=== PATIENT | male | born 1945 | race Caucasian/White ===

== ENCOUNTER 2016-09-03 11:27 | Observation (INO) | payer MEDICARE, MEDICAID ==
[~2016-09-03] VITALS: Ht 170.2 cm; Wt 72.6 kg
[~2016-09-03 11:27] MED LIST: CLON0.1T PO; FERR-63 PO; LISI-604 PO; PRAV40TA58 PO
[2016-09-03 12:28] LABS: INR 1.1
[2016-09-03 12:29] LABS: BASOPHILS % 0.9 % (0.0-2.0); EOSINOPHILS % 5.4 % (0.0-5.0); HEMATOCRIT. 33.6 % (42.0-52.0); HEMOGLOBIN. 11.1 g/dL (14.0-18.0); LYMPHOCYTES % 14.6 % (20.0-50.0); MEAN CORPUSCULAR HEMOGLOBIN 31.2 pg (28.0-32.0); MEAN CORPUSCULAR HGB CONC 33.1 g/dL (31.0-37.0); MEAN CORPUSCULAR VOLUME 94.2 fL (80.0-94.0); MEAN PLATELET VOLUME 8.6 fl (7.4-10.4); MONOCYTES % 8.6 % (2.0-8.0); NEUTROPHILS % 70.5 % (40.0-76.0); PLATELET 143 x1000/uL (130-400); RED BLOOD CELL COUNT 3.57 mill/uL (4.7-6.1); RED CELL DISTRIBUTION WIDTH 15.5 % (11.6-14.6); WHITE BLOOD COUNT 6.6 x1000/uL (4.5-11.0)
[2016-09-03 12:35] LABS: ALANINE AMINOTRANSFERASE 17 IU/L (13-61); ALBUMIN 3.3 g/dL (3.4-5.0); ANION GAP 11; CALCIUM 7.8 mg/dL (8.5-10.1); CARBON DIOXIDE 31 mEq/L (21-32); CHLORIDE 101 mEq/L (98-107); INDEX HEMOLYSI 1 (1-3); INDEX ICTERIC 1 (1-4); INDEX LIPEMIC 1 (1-3); UREA NITROGEN BLOOD 52 mg/dL (7-21); eGFR 8 mL/min (>60)
[2016-09-03] MEDS ORDERED: LOSARTAN POTASSIUM 100 MG TABLET PO SCH (16:45)
[2016-09-03 16:58] VITALS: BP 160/97
[2016-09-03] MEDS ORDERED: VALS320T9 PO (17:46)
[2016-09-03] MEDS ORDERED: SEVE800T8 PO (17:46)
[2016-09-03] MEDS ORDERED: DOCU-138 PO (17:46)
[2016-09-03] MEDS ORDERED: ATOR80TA76 PO (17:46)
[2016-09-03] MEDS ORDERED: CALCIUM ACETATE PO (17:46)
[2016-09-03] MEDS ORDERED: ASPI-1035 PO (17:46)
[2016-09-03] MEDS ORDERED: CALC0.253 PO (17:46)
[2016-09-03] MEDS ORDERED: AMLO10TA80 PO (17:46)
[2016-09-03 20:00] VITALS: BP 143/88
[2016-09-03] MEDS ORDERED: ATORVASTATIN CALCIUM 10MG TABLET PO SCH (21:00)
[2016-09-04] VITALS: BP 133/92
[2016-09-04 04:00] VITALS: BP 119/89
[2016-09-04 06:02] LABS: BASOPHILS % 1.1 % (0.0-2.0); EOSINOPHILS % 6.1 % (0.0-5.0); HEMOGLOBIN. 11.8 g/dL (14.0-18.0); LYMPHOCYTES % 17.9 % (20.0-50.0); MEAN CORPUSCULAR HGB CONC 32.7 g/dL (31.0-37.0); MEAN CORPUSCULAR VOLUME 94.7 fL (80.0-94.0); MEAN PLATELET VOLUME 9.3 fl (7.4-10.4); MONOCYTES % 9.3 % (2.0-8.0); NEUTROPHILS % 65.6 % (40.0-76.0); PLATELET 131 x1000/uL (130-400); RED CELL DISTRIBUTION WIDTH 15.8 % (11.6-14.6)
[2016-09-04 06:25] LABS: CALCIUM 7.6 mg/dL (8.5-10.1); PHOSPHORUS 3.3 mg/dL (2.5-4.9)
[2016-09-04 08:00] VITALS: BP 127/92
[2016-09-04 08:36] VITALS: BP 119/89
[2016-09-04] MEDS ORDERED: FOLIC ACID/VITAMIN B COMP W-C TABLET PO SCH (09:00)
[2016-09-04] MEDS ORDERED: AMLODIPINE 2.5MG TABLET PO SCH (09:00)
[2016-09-04] MEDS ORDERED: LOSARTAN POTASSIUM 100 MG TABLET PO SCH ×2 (09:00)
== END 2016-09-04 09:00 | disposition home or self-care (01) ==
LOC: ER 12:42 → 7WST 13:38 → INTOOBSV 13:38
PROVIDERS: ADMIT Internal Medicine; ATTEND Internal Medicine
DX: T82.49XA Other complication of vascular dialysis catheter, initial encounter (principal); E11.22 Type 2 diabetes mellitus with diabetic chronic kidney disease; I12.0 Hypertensive chronic kidney disease with stage 5 chronic kidney disease or end stage renal disease; N18.6 End stage renal disease; Z99.2 Dependence on renal dialysis; D64.9 Anemia, unspecified; E78.5 Hyperlipidemia, unspecified; E83.51 Hypocalcemia; E87.3 Alkalosis; I25.10 Atherosclerotic heart disease of native coronary artery without angina pectoris; N25.81 Secondary hyperparathyroidism of renal origin; E83.39 Other disorders of phosphorus metabolism; Z82.49 Family history of ischemic heart disease and other diseases of the circulatory system; Y71.2 Prosthetic and other implants, materials and accessory cardiovascular devices associated with adverse incidents
CPT/HCPCS: 36415; 36581; 71010; 77001; 80048; 80053; 84100; 85025; 85610; 93005; 99285; C1750; C1769; G0378; J7030

== ENCOUNTER 2017-01-13 11:04 | Emergency (ER) | payer MEDICARE, MEDICAID ==
[~2017-01-13] VITALS: Ht 170.2 cm; Wt 82.0 kg
[~2017-01-13 11:04] MED LIST changes: +ASPI-1159 PO; +ATOR-2 PO; +CALCIUM ACETATE PO; -CLON0.1T PO; +DOCU-138 PO; -FERR-63 PO; -LISI-604 PO; -PRAV40TA58 PO; +VALS320T2 PO
[2017-01-13] MEDS ORDERED: MORPHINE SULFATE 2 MG/ML CPJ (NOT FOR IM USE) IV ONE (12:00)
[2017-01-13] MEDS ORDERED: ONDANSETRON HCL 4MG/2ML VIAL IV ONE ×2 (12:00→15:45)
[2017-01-13 12:19] LABS: BASOPHILS % 1.1 % (0.0-2.0); EOSINOPHILS % 2.4 % (0.0-5.0); HEMATOCRIT. 36.7 % (42.0-52.0); HEMOGLOBIN. 11.9 g/dL (14.0-18.0); LYMPHOCYTES % 10.3 % (20.0-50.0); MEAN CORPUSCULAR HEMOGLOBIN 30.6 pg (28.0-32.0); MEAN CORPUSCULAR VOLUME 94.7 fL (80.0-94.0); MEAN PLATELET VOLUME 8.5 fl (7.4-10.4); MONOCYTES % 8.2 % (2.0-8.0); PLATELET 95 x1000/uL (130-400); RED BLOOD CELL COUNT 3.88 mill/uL (4.7-6.1); RED CELL DISTRIBUTION WIDTH 17.5 % (11.6-14.6)
[2017-01-13 12:28] LABS: INR 1.1; PARTIAL THROMBOPLASTIN TIME 30.8 sec (24.0-34.0); PROTHROMBIN TIME 11.8 sec
[2017-01-13 12:36] LABS: CARBON DIOXIDE 24 mEq/L (21-32); CHLORIDE 101 mEq/L (98-107); TROPONIN I < 0.02 ng/mL (0.00-0.04)
[2017-01-13] MEDS ORDERED: HYDROMORPHONE HCL/PF 2MG/ML CPJ IV ONE (15:45)
[2017-01-13] MEDS ORDERED: MORPHINE SULFATE 4 MG/ML CPJ (NOT FOR IM USE) IV STA (19:55)
[2017-01-13] MEDS ORDERED: ONDANSETRON HCL 4MG/2ML VIAL IV STA (19:55)
[2017-01-13 20:05] VITALS: BP 121/90
== END 2017-01-13 20:10 | disposition short-term general hospital (02) ==
LOC: ER 12:05 → EDBEDREQ 14:17 → ENRESERV 15:22 → CANRESERV 15:22 → EDBEDREQ 16:37 → CANBEDREQ 17:39 → ER 20:10
DX: S72.002A Fracture of unspecified part of neck of left femur, initial encounter for closed fracture (principal); S00.91XA Abrasion of unspecified part of head, initial encounter; R55 Syncope and collapse; I12.0 Hypertensive chronic kidney disease with stage 5 chronic kidney disease or end stage renal disease; E11.22 Type 2 diabetes mellitus with diabetic chronic kidney disease; N18.6 End stage renal disease; Z99.2 Dependence on renal dialysis; Z79.82 Long term (current) use of aspirin; X58.XXXA Exposure to other specified factors, initial encounter; Y93.89 Activity, other specified; Y92.89 Other specified places as the place of occurrence of the external cause; Y99.8 Other external cause status
CPT/HCPCS: 36415; 70450; 71010; 72125; 73502; 80053; 82553; 82962; 83735; 83880; 84484; 85025; 85610; 85730; 93005; 96374; 96375; 96376; 99285; J1170; J2270; J2405

== ENCOUNTER 2017-02-13 21:21 | Observation (INO) | payer MEDICARE, MEDICAID, OTHER ==
[~2017-02-13] VITALS: Ht 170.2 cm; Wt 74.8 kg
[2017-02-13] MEDS ORDERED: LORAZEPAM 2MG/ML CPJ IV ONE (23:00)
[2017-02-13] MEDS ORDERED: LEVETIRACETAM 1,000 MG in SODIUM CHLORIDE 0.9% 100 ML IV ONE (23:00)
[2017-02-13 23:13] LABS: CHLORIDE 99 mEq/L (98-107)
[2017-02-13 23:14] LABS: BASOPHILS % 1.2 % (0.0-2.0); EOSINOPHILS % 2.4 % (0.0-5.0); HEMATOCRIT. 30.3 % (42.0-52.0); HEMOGLOBIN. 9.9 g/dL (14.0-18.0); LYMPHOCYTES % 7.2 % (20.0-50.0); MEAN CORPUSCULAR HEMOGLOBIN 30.4 pg (28.0-32.0); MEAN CORPUSCULAR VOLUME 93.2 fL (80.0-94.0); MEAN PLATELET VOLUME 7.9 fl (7.4-10.4); MONOCYTES % 11.2 % (2.0-8.0); PLATELET 166 x1000/uL (130-400); RED BLOOD CELL COUNT 3.25 mill/uL (4.7-6.1); RED CELL DISTRIBUTION WIDTH 17.8 % (11.6-14.6)
[2017-02-13 23:16] LABS: INR 1.2; PROTHROMBIN TIME 12.2 sec (9.4-11.6)
[2017-02-13 23:18] LABS: CARBON DIOXIDE 30 mEq/L (21-32)
[2017-02-14] MEDS ORDERED: ACETAMINOPHEN 325MG TABLET PO PRN
[2017-02-14] MEDS ORDERED: IBUPROFEN 600MG TABLET PO PRN
[2017-02-14] MEDS ORDERED: LORAZEPAM 2MG/ML CPJ IV PRN (01:30)
[2017-02-14] MEDS ORDERED: ENOXAPARIN 40MG/0.4ML SYR SUBCUT SCH (01:30)
[2017-02-14] MEDS ORDERED: ACETAMINOPHEN 650MG SUPP PR PRN (01:30)
[2017-02-14 02:45] VITALS: BP 110/75
[2017-02-14] MEDS ORDERED: DEXT 5%/0.45% NACL 1000ML 1,000 ML IV ONE (04:00)
[2017-02-14 05:33] LABS: TROPONIN I 0.03 ng/mL (0.00-0.04)
[2017-02-14 06:10] LABS: BASOPHILS % 1.2 % (0.0-2.0); EOSINOPHILS % 1.1 % (0.0-5.0); HEMATOCRIT. 27.4 % (42.0-52.0); HEMOGLOBIN. 8.9 g/dL (14.0-18.0); LYMPHOCYTES % 15.6 % (20.0-50.0); MEAN CORPUSCULAR HEMOGLOBIN 30.4 pg (28.0-32.0); MEAN PLATELET VOLUME 8.2 fl (7.4-10.4); MONOCYTES % 10.6 % (2.0-8.0); NEUTROPHILS % 71.5 % (40.0-76.0); PLATELET 174 x1000/uL (130-400); RED BLOOD CELL COUNT 2.94 mill/uL (4.7-6.1); RED CELL DISTRIBUTION WIDTH 17.6 % (11.6-14.6)
[2017-02-14] MEDS: SODIUM CHLORIDE 0.9% INJ 3ML FLUSH IVF SCH ×2 (06:15→13:09)
[2017-02-14 08:00] VITALS: BP 98/57
[2017-02-14] MEDS ORDERED: ATEN-42 PO (08:13)
[2017-02-14] MEDS: DOCUSATE SODIUM 100MG CAPSULE PO SCH ×2 (08:25→17:00)
[2017-02-14] MEDS ORDERED: ASPIRIN 81MG EC TABLET PO SCH (09:00)
[2017-02-14] MEDS ORDERED: ENOXAPARIN 30MG/0.3ML SYR SUBCUT SCH (09:00)
[2017-02-14] MEDS ORDERED: LOSARTAN POTASSIUM 100 MG TABLET PO SCH (09:00)
[2017-02-14] MEDS ORDERED: FAMOTIDINE 20MG/2ML VIAL IV SCH (09:00)
[2017-02-14 12:00] VITALS: BP 116/62
[2017-02-14] MEDS ORDERED: LEVETIRACETAM 500 MG in SODIUM CHLORIDE 0.9% 100 ML IV SCH (12:00)
[2017-02-14] MEDS ORDERED: LEVETIRACETAM 500MG PREMIX 100 ML IV SCH (12:00)
[2017-02-14 16:00] VITALS: BP 98/52
[2017-02-14 20:00] VITALS: BP 115/62
[2017-02-14] MEDS ORDERED: LEVETIRACETAM 500MG TABLET PO NR (20:39)
[2017-02-14] MEDS ORDERED: ATORVASTATIN CALCIUM 40MG TABLET PO SCH (21:00)
[2017-02-14] MEDS ORDERED: KEPP500 PO (21:07)
[2017-02-14 21:08] VITALS: BP 115/62
== END 2017-02-14 21:30 | disposition home or self-care (01) ==
LOC: ER 21:26 → 7WST 23:51 → INTOOBSV 23:51 → EDBEDREQ 02-14 00:02 → ENRESERV 02-14 00:41
PROVIDERS: ADMIT Internal Medicine; ATTEND Internal Medicine
DX: G40.909 Epilepsy, unspecified, not intractable, without status epilepticus (principal); I12.0 Hypertensive chronic kidney disease with stage 5 chronic kidney disease or end stage renal disease; E11.22 Type 2 diabetes mellitus with diabetic chronic kidney disease; N18.6 End stage renal disease; Z99.2 Dependence on renal dialysis; E43 Unspecified severe protein-calorie malnutrition; D64.9 Anemia, unspecified
CPT/HCPCS: 36415; 70450; 71010; 80048; 80053; 83690; 84484; 85025; 85610; 87040; 93005; 96361; 96365; 96372; 96375; 99291; G0378; J1650; J1953; J2060; J3490; 96374; J7050

== ENCOUNTER 2018-02-12 19:19 | Emergency (ER) | payer MEDICARE, MEDICAID ==
[~2018-02-12] VITALS: Ht 170.2 cm; Wt 82.0 kg
[~2018-02-12 19:19] MED LIST changes: +ATEN-42 PO; +KEPP500 PO
[2018-02-12] MEDS ORDERED: HYDROCODONE/ACETAMINOPHEN 5/325MG TABLET PO PRN (21:30)
[2018-02-12] MEDS ORDERED: HYDROCODONE/ACETAMINOPHEN 5/325MG TABLET PO ONE (22:30)
[2018-02-12] MEDS ORDERED: TRAMADOL 50MG TABLET PO ONE (22:30)
[2018-02-12 22:36] VITALS: BP 107/54
[2018-02-18] MEDS ORDERED: MIDO10TA MT (11:36)
[2018-02-18] MEDS ORDERED: LEVO250T2 MT (11:40)
== END 2018-02-12 23:19 | disposition home or self-care (01) ==
LOC: ER 19:19
DX: S52.502G Unspecified fracture of the lower end of left radius, subsequent encounter for closed fracture with delayed healing (principal); S52.615A Nondisplaced fracture of left ulna styloid process, initial encounter for closed fracture; I12.0 Hypertensive chronic kidney disease with stage 5 chronic kidney disease or end stage renal disease; N18.6 End stage renal disease; Z99.2 Dependence on renal dialysis; W01.0XXA Fall on same level from slipping, tripping and stumbling without subsequent striking against object, initial encounter; Z79.82 Long term (current) use of aspirin; Y93.89 Activity, other specified; Y92.89 Other specified places as the place of occurrence of the external cause
CPT/HCPCS: 29105; 73110; 99284; A4565

== ENCOUNTER 2018-04-18 08:18 | Inpatient (IN) | payer MEDICARE, MEDICAID ==
[2018-04-18] VITALS (41 sets, daily range): BP systolic 65–150; BP diastolic 30–110
[~2018-04-18] VITALS: Ht 170.2 cm; Wt 69.9 kg
[~2018-04-18 08:18] MED LIST changes: -ATEN-42 PO; -ATOR-2 PO; -CALCIUM ACETATE PO; +LEVO250T2 MT; +MIDO10TA MT; -VALS320T2 PO
[2018-04-18] MEDS ORDERED: SODIUM CHLORIDE 0.9% 500 ML IV ONE (08:41)
[2018-04-18 09:02] LABS: BASOPHILS % 1.4 % (0.0-2.0); EOSINOPHILS % 0.4 % (0.0-5.0); LYMPHOCYTES % 14.8 % (20.0-50.0); MEAN CORPUSCULAR HEMOGLOBIN 36.2 pg (28.0-32.0); MEAN CORPUSCULAR VOLUME 107.7 fL (80.0-94.0); MEAN PLATELET VOLUME 8.3 fl (7.4-10.4); MONOCYTES % 13.7 % (2.0-8.0); NEUTROPHILS % 69.7 % (40.0-76.0); PLATELET 154 x1000/uL (130-400); RED BLOOD CELL COUNT 1.37 mill/uL (4.7-6.1)
[2018-04-18 09:06] LABS: HEMATOCRIT. 14.7 % (42.0-52.0)
[2018-04-18 09:17] LABS: INR 1.5; PROTHROMBIN TIME 14.7 sec (9.1-11.1)
[2018-04-18 09:29] LABS: CHLORIDE 101 mEq/L (98-107)
[2018-04-18] MEDS ORDERED: PHENYLEPHRINE 10 MG in DEXT 5% WATER 249 ML IV PRN ×2 (12:30→13:18)
[2018-04-18] MEDS ORDERED: NOREPINEPHRINE 4MG/250ML PMX 250 ML IV ONE (13:30)
[2018-04-18] MEDS ORDERED: SIMETHICONE 40 MG/0.6 ML 30ML ONE (14:54)
[2018-04-18] MEDS ORDERED: SODIUM CHLORIDE 0.9% 10ML VIAL ONE (14:54)
[2018-04-18] MEDS ORDERED: EPINEPHRINE 0.1MG/ML (1:10,000) 10ML SYR ONE (15:37)
[2018-04-18] MEDS ORDERED: ACETAMINOPHEN 325MG TABLET PO PRN (16:15)
[2018-04-18] MEDS ORDERED: MORPHINE SULFATE 4 MG/ML CPJ (NOT FOR IM USE) IV PRN (16:15)
[2018-04-18] MEDS ORDERED: DIPHENHYDRAMINE 25MG CAPSULE PO PRN (16:15)
[2018-04-18] MEDS ORDERED: PANTOPRAZOLE SODIUM 40 MG/VIAL IV SCH (16:15)
[2018-04-18] MEDS ORDERED: ONDANSETRON HCL 4MG/2ML INJ IV PRN (16:15)
[2018-04-18] MEDS: MIDODRINE HCL 5MG TABLET PO SCH (16:48)
[2018-04-18] MEDS: PHENYLEPHRINE 80 MG in DEXT 5% WATER 492 ML IV PRN (17:32)
[2018-04-18] MEDS: PANTOPRAZOLE SODIUM 40 MG/VIAL IV SCH (17:33)
[2018-04-18 17:59] LABS: HEMATOCRIT 23.5 % (42.0-52.0); HEMOGLOBIN 8.3 g/dL (14.0-18.0)
[2018-04-18] MEDS ORDERED: MIDAZOLAM HCL 5 MG/5 ML VIAL ONE (18:09)
[2018-04-18] MEDS ORDERED: FENTANYL CITRATE/PF 50MCG/ML 2ML VIAL ONE (18:09)
[2018-04-18 18:19] LABS: INR 1.4; PARTIAL THROMBOPLASTIN TIME 31.4 sec (23.4-31.0); PROTHROMBIN TIME 14.2 sec (9.1-11.1)
[2018-04-18] MEDS ORDERED: MIDAZOLAM HCL 2 MG/2 ML VIAL IV PRN (18:32)
[2018-04-18] MEDS: SUCRALFATE 1 G/10 ML UDC PO SCH (21:00)
[2018-04-19] VITALS (121 sets, daily range): BP systolic 81–118; BP diastolic 30–63
[2018-04-19 00:36] LABS: HEMATOCRIT 31.3 % (42.0-52.0); HEMOGLOBIN 10.9 g/dL (14.0-18.0)
[2018-04-19] MEDS: PHENYLEPHRINE 80 MG in DEXT 5% WATER 492 ML IV PRN ×2 (02:06→10:23)
[2018-04-19 07:20] LABS: BASOPHILS % 0.7 % (0.0-2.0); EOSINOPHILS % 0.6 % (0.0-5.0); HEMATOCRIT. 25.1 % (42.0-52.0); HEMOGLOBIN. 9.1 g/dL (14.0-18.0); LYMPHOCYTES % 9.7 % (20.0-50.0); MEAN CORPUSCULAR HEMOGLOBIN 32.5 pg (28.0-32.0); MEAN CORPUSCULAR VOLUME 90.2 fL (80.0-94.0); MEAN PLATELET VOLUME 8.6 fl (7.4-10.4); MONOCYTES % 11.5 % (2.0-8.0); NEUTROPHILS % 77.5 % (40.0-76.0); PLATELET 75 x1000/uL (130-400); RED BLOOD CELL COUNT 2.79 mill/uL (4.7-6.1)
[2018-04-19 08:00] LABS: CHLORIDE 106 mEq/L (98-107)
[2018-04-19] MEDS: SUCRALFATE 1 G/10 ML UDC PO SCH ×4 (08:37→21:12)
[2018-04-19] MEDS: PANTOPRAZOLE SODIUM 40 MG/VIAL IV SCH ×2 (08:37→18:28)
[2018-04-19] MEDS: MIDODRINE HCL 5MG TABLET PO SCH ×3 (08:37→18:28)
[2018-04-19 08:40] LABS: PHOSPHORUS 3.5 mg/dL (2.5-4.9)
[2018-04-19] MEDS ORDERED: LORAZEPAM 2MG/ML CPJ IV PRN (12:00)
[2018-04-19 13:12] LABS: HEPATITIS B SURFACE ANTIGEN NEGATIVE
[2018-04-19 13:39] LABS: HEMATOCRIT 28.3 % (42.0-52.0)
[2018-04-19 13:41] LABS: HEPATITIS A AB IGM NEGATIVE (NEGATIVE)
[2018-04-19 14:05] LABS: INR 1.3; PARTIAL THROMBOPLASTIN TIME 29.2 sec (23.4-31.0); PROTHROMBIN TIME 12.8 sec (9.1-11.1)
[2018-04-19] MEDS ORDERED: IPRATROPIUM/ALBUTEROL 0.5-3(2.5)MG/3ML NEB HHN PRN (19:15)
[2018-04-19 20:59] LABS: HEMATOCRIT 29.2 % (42.0-52.0); HEMOGLOBIN 10.3 g/dL (14.0-18.0)
[2018-04-19] MEDS: LEVETIRACETAM 500MG TABLET PO SCH (21:12)
[2018-04-20] VITALS (93 sets, daily range): BP systolic 70–117; BP diastolic 39–84
[2018-04-20 00:33] LABS: HEMOGLOBIN 9.7 g/dL (14.0-18.0)
[2018-04-20] MEDS: PHENYLEPHRINE 80 MG in DEXT 5% WATER 492 ML IV PRN ×2 (01:22→11:08)
[2018-04-20] MEDS: IPRATROPIUM/ALBUTEROL 0.5-3(2.5)MG/3ML NEB HHN SCH ×4 (01:54→20:27)
[2018-04-20 06:16] LABS: HEMATOCRIT. 26.6 % (42.0-52.0); HEMOGLOBIN. 9.4 g/dL (14.0-18.0); PLATELET 68 x1000/uL (130-400); RED BLOOD CELL COUNT 2.93 mill/uL (4.7-6.1); RED CELL DISTRIBUTION WIDTH 16.9 % (11.6-14.6)
[2018-04-20 06:27] LABS: PHOSPHORUS 3.3 mg/dL (2.5-4.9)
[2018-04-20 06:43] LABS: INR 1.3
[2018-04-20] MEDS: MIDODRINE HCL 5MG TABLET PO SCH ×3 (08:27→16:57)
[2018-04-20] MEDS: SUCRALFATE 1 G/10 ML UDC PO SCH ×4 (08:27→21:10)
[2018-04-20] MEDS: LEVETIRACETAM 500MG TABLET PO SCH ×2 (08:27→21:10)
[2018-04-20] MEDS: PANTOPRAZOLE SODIUM 40 MG/VIAL IV SCH ×2 (08:27→16:57)
[2018-04-20 08:50] LABS: PLATELET ESTIMATE DECREASED
[2018-04-20] MEDS ORDERED: LACTULOSE 20G/30ML UDC PO SCH (09:30)
[2018-04-20] MEDS ORDERED: ALBUMIN HUMAN 12.5GM/50ML (25%) IV SCH (09:50)
[2018-04-20 12:53] LABS: HEMOGLOBIN 9.3 g/dL (14.0-18.0)
[2018-04-21] VITALS (97 sets, daily range): BP systolic 73–117; BP diastolic 34–72
[2018-04-21] MEDS: IPRATROPIUM/ALBUTEROL 0.5-3(2.5)MG/3ML NEB HHN SCH ×3 (01:37→20:27)
[2018-04-21 05:58] LABS: HEMATOCRIT. 26.1 % (42.0-52.0); HEMOGLOBIN. 9.1 g/dL (14.0-18.0); MEAN CORPUSCULAR HEMOGLOBIN 32.4 pg (28.0-32.0); MEAN CORPUSCULAR VOLUME 93.1 fL (80.0-94.0); MEAN PLATELET VOLUME 9.4 fl (7.4-10.4); PLATELET 64 x1000/uL (130-400); RED BLOOD CELL COUNT 2.81 mill/uL (4.7-6.1)
[2018-04-21 06:00] LABS: INR 1.3; PROTHROMBIN TIME 13.5 sec (9.1-11.1)
[2018-04-21 06:20] LABS: PHOSPHORUS 3.2 mg/dL (2.5-4.9)
[2018-04-21] MEDS: PANTOPRAZOLE SODIUM 40 MG/VIAL IV SCH ×2 (09:11→16:59)
[2018-04-21] MEDS: SUCRALFATE 1 G/10 ML UDC PO SCH ×4 (09:11→20:27)
[2018-04-21] MEDS: LEVETIRACETAM 500MG TABLET PO SCH ×2 (09:12→20:26)
[2018-04-21] MEDS: MIDODRINE HCL 5MG TABLET PO SCH ×3 (09:12→21:03)
[2018-04-21 09:59] LABS: PLATELET ESTIMATE DECREASED
[2018-04-21] MEDS: NOREPINEPHRINE 32 MG in DEXT 5% WATER 468 ML IV PRN ×2 (10:41→14:07)
[2018-04-21] MEDS: PHENYLEPHRINE 80 MG in DEXT 5% WATER 492 ML IV PRN ×2 (13:30→19:48)
[2018-04-22] VITALS (98 sets, daily range): BP systolic 80–126; BP diastolic 33–65
[2018-04-22] MEDS: PHENYLEPHRINE 80 MG in DEXT 5% WATER 492 ML IV PRN (03:37)
[2018-04-22] MEDS: MIDODRINE HCL 5MG TABLET PO SCH ×3 (05:18→22:44)
[2018-04-22] MEDS: SUCRALFATE 1 G/10 ML UDC PO SCH ×4 (08:10→22:49)
[2018-04-22] MEDS: LEVETIRACETAM 500MG TABLET PO SCH ×2 (08:10→22:44)
[2018-04-22] MEDS: PANTOPRAZOLE SODIUM 40 MG/VIAL IV SCH ×2 (08:11→19:05)
[2018-04-22] MEDS ORDERED: LACTULOSE 20G/30ML UDC PO SCH (08:30)
[2018-04-22] MEDS: IPRATROPIUM/ALBUTEROL 0.5-3(2.5)MG/3ML NEB HHN SCH ×3 (08:52→19:58)
[2018-04-22 09:23] LABS: HEMATOCRIT. 28.4 % (42.0-52.0); HEMOGLOBIN. 9.6 g/dL (14.0-18.0); MEAN CORPUSCULAR HEMOGLOBIN 32.1 pg (28.0-32.0); MEAN CORPUSCULAR VOLUME 95.1 fL (80.0-94.0); MEAN PLATELET VOLUME 9.5 fl (7.4-10.4); PLATELET 78 x1000/uL (130-400); RED BLOOD CELL COUNT 2.98 mill/uL (4.7-6.1); RED CELL DISTRIBUTION WIDTH 17.5 % (11.6-14.6)
[2018-04-22 09:36] LABS: BG BASE EXCESS 2.1 mmol/L (-2.0-2.0); BG DEOXYHEMOGLOBIN 7.4 % (0.0-5.0); BG FRACTION INSPIRED OXYGEN 4; BG HCO3 ACT 25.3 mmol/L (22.0-26.0); BG METHEMOGLOBIN 0.3 % (0.0-1.5); BG OXYGEN SATURATION 92.5 % (92.0-98.5); BG OXYHEMOGLOBIN 91.3 % (94.0-97.0); BG PCO2 34.1 mmHg (35.0-45.0); BG PH 7.489 (7.350-7.450); BG PO2 62.3 mmHg (75.0-100.0); BG SAMPLE SITE RIGHT RADIAL; BG TOTAL HEMOGLOBIN 9.9 g/dL (12.0-18.0); BG VENT MODE NASAL CANNULA
[2018-04-22 09:37] LABS: PHOSPHORUS 3.9 mg/dL (2.5-4.9)
[2018-04-22] MEDS ORDERED: NOREPINEPHRINE 32 MG in DEXT 5% WATER 250 ML IV PRN (10:28)
[2018-04-22 10:33] LABS: PLATELET ESTIMATE DECREASED
[2018-04-22] MEDS ORDERED: NOREPINEPHRINE 32 MG in DEXT 5% WATER 218 ML IV PRN (12:00)
[2018-04-22] MEDS: PHENYLEPHRINE IV PRN (14:32)
[2018-04-22] MEDS: WATER IV PRN (14:32)
[2018-04-22] MEDS: DEXT 5% IV PRN (14:32)
[2018-04-22] MEDS ORDERED: LIDOCAINE HCL 1% 20ML VIAL (Pyxis) INJ ONE (17:09)
[2018-04-22] MEDS ORDERED: SODIUM BICARBONATE 4% (2.4MEQ) 5ML VIAL IV ONE (17:10)
[2018-04-23] VITALS (81 sets, daily range): BP systolic 82–114; BP diastolic 36–60
[2018-04-23] MEDS: IPRATROPIUM/ALBUTEROL 0.5-3(2.5)MG/3ML NEB HHN SCH ×4 (02:05→20:11)
[2018-04-23] MEDS: WATER IV PRN ×3 (04:04→19:36)
[2018-04-23] MEDS: DEXT 5% IV PRN ×3 (04:04→19:36)
[2018-04-23] MEDS: PHENYLEPHRINE IV PRN ×3 (04:04→19:36)
[2018-04-23 05:38] LABS: HEMATOCRIT. 27.4 % (42.0-52.0); HEMOGLOBIN. 9.4 g/dL (14.0-18.0); MEAN CORPUSCULAR HEMOGLOBIN 32.5 pg (28.0-32.0); MEAN CORPUSCULAR VOLUME 94.9 fL (80.0-94.0); MEAN PLATELET VOLUME 9.2 fl (7.4-10.4); PLATELET 98 x1000/uL (130-400); RED BLOOD CELL COUNT 2.89 mill/uL (4.7-6.1); RED CELL DISTRIBUTION WIDTH 17.6 % (11.6-14.6)
[2018-04-23 05:43] LABS: PHOSPHORUS 3.3 mg/dL (2.5-4.9)
[2018-04-23 07:21] LABS: BG BASE EXCESS -1.4 mmol/L (-2.0-2.0); BG CARBOXYHEMOGLOBIN 1.2 % (0.5-1.5); BG DEOXYHEMOGLOBIN 8.4 % (0.0-5.0); BG HCO3 ACT 21.6 mmol/L (22.0-26.0); BG METHEMOGLOBIN 0.3 % (0.0-1.5); BG OXYGEN SATURATION 91.5 % (92.0-98.5); BG OXYHEMOGLOBIN 90.1 % (94.0-97.0); BG PCO2 30.4 mmHg (35.0-45.0); BG PO2 60.3 mmHg (75.0-100.0); BG SAMPLE SITE RIGHT RADIAL; BG TOTAL HEMOGLOBIN 9.6 g/dL (12.0-18.0); BG VENT MODE MASK - VENTI
[2018-04-23 07:34] LABS: PLATELET ESTIMATE SLIGHTLY DECREASED
[2018-04-23] MEDS: PANTOPRAZOLE SODIUM 40 MG/VIAL IV SCH ×2 (09:05→17:02)
[2018-04-23] MEDS: SUCRALFATE 1 G/10 ML UDC PO SCH ×4 (09:05→22:34)
[2018-04-23] MEDS: LEVETIRACETAM 500MG TABLET PO SCH ×2 (09:06→22:34)
[2018-04-23] MEDS: LACTULOSE 20G/30ML UDC PO SCH (09:06)
[2018-04-23] MEDS: MIDODRINE HCL 5MG TABLET PO SCH ×3 (09:06→22:34)
[2018-04-23] MEDS ORDERED: MORPHINE SULFATE 4 MG/ML CPJ (NOT FOR IM USE) IV PRN (18:45)
[2018-04-23] MEDS ORDERED: DEXT 5% IV PRN (19:00)
[2018-04-23] MEDS ORDERED: WATER IV PRN (19:00)
[2018-04-23] MEDS ORDERED: PHENYLEPHRINE IV PRN (19:00)
[2018-04-24] VITALS (105 sets, daily range): BP systolic 74–121; BP diastolic 26–60
[2018-04-24] MEDS: WATER IV PRN ×2 (00:02→12:39)
[2018-04-24] MEDS: PHENYLEPHRINE IV PRN ×2 (00:02→12:39)
[2018-04-24] MEDS: DEXT 5% IV PRN ×2 (00:02→12:39)
[2018-04-24] MEDS: NOREPINEPHRINE 64 MG in DEXT 5% WATER 436 ML IV PRN (00:03)
[2018-04-24] MEDS: IPRATROPIUM/ALBUTEROL 0.5-3(2.5)MG/3ML NEB HHN SCH ×3 (01:42→13:58)
[2018-04-24 05:39] LABS: HEMATOCRIT. 26.4 % (42.0-52.0); HEMOGLOBIN. 9.1 g/dL (14.0-18.0); MEAN CORPUSCULAR HEMOGLOBIN 32.9 pg (28.0-32.0); MEAN CORPUSCULAR VOLUME 95.6 fL (80.0-94.0); MEAN PLATELET VOLUME 8.8 fl (7.4-10.4); PLATELET 101 x1000/uL (130-400); RED BLOOD CELL COUNT 2.76 mill/uL (4.7-6.1); RED CELL DISTRIBUTION WIDTH 18.3 % (11.6-14.6)
[2018-04-24 05:49] LABS: CHLORIDE 104 mEq/L (98-107)
[2018-04-24 06:08] LABS: PHOSPHORUS 3.1 mg/dL (2.5-4.9)
[2018-04-24] MEDS: MIDODRINE HCL 5MG TABLET PO SCH ×3 (07:26→21:00)
[2018-04-24 07:30] LABS: BG BASE EXCESS -2.7 mmol/L (-2.0-2.0); BG CARBOXYHEMOGLOBIN 0.6 % (0.5-1.5); BG DEOXYHEMOGLOBIN 1.2 % (0.0-5.0); BG HCO3 ACT 20.8 mmol/L (22.0-26.0); BG METHEMOGLOBIN 0.1 % (0.0-1.5); BG OXYGEN SATURATION 98.8 % (92.0-98.5); BG OXYHEMOGLOBIN 98.1 % (94.0-97.0); BG PCO2 31.6 mmHg (35.0-45.0); BG PH 7.437 (7.350-7.450); BG PO2 180.9 mmHg (75.0-100.0); BG SAMPLE SITE RIGHT RADIAL; BG TOTAL HEMOGLOBIN 9.8 g/dL (12.0-18.0); BG VENT MODE MASK - NRB
[2018-04-24] MEDS: SUCRALFATE 1 G/10 ML UDC PO SCH ×4 (08:09→20:57)
[2018-04-24] MEDS: LACTULOSE 20G/30ML UDC PO SCH (08:10)
[2018-04-24] MEDS: PANTOPRAZOLE SODIUM 40 MG/VIAL IV SCH ×2 (08:10→17:59)
[2018-04-24] MEDS: LEVETIRACETAM 500MG TABLET PO SCH ×2 (08:10→20:57)
[2018-04-24 09:49] LABS: NUCLEATED RED BLOOD CELLS 1 /100 WBC; PLATELET ESTIMATE DECREASED
[2018-04-25] VITALS (96 sets, daily range): BP systolic 74–112; BP diastolic 29–53
[2018-04-25] MEDS: IPRATROPIUM/ALBUTEROL 0.5-3(2.5)MG/3ML NEB HHN SCH ×4 (02:15→21:09)
[2018-04-25 05:14] LABS: HEMATOCRIT. 26.6 % (42.0-52.0); MEAN CORPUSCULAR HEMOGLOBIN 32.6 pg (28.0-32.0); MEAN CORPUSCULAR VOLUME 96.3 fL (80.0-94.0); MEAN PLATELET VOLUME 8.9 fl (7.4-10.4); PLATELET 101 x1000/uL (130-400); RED BLOOD CELL COUNT 2.76 mill/uL (4.7-6.1); RED CELL DISTRIBUTION WIDTH 18.5 % (11.6-14.6)
[2018-04-25 05:21] LABS: CHLORIDE 106 mEq/L (98-107)
[2018-04-25] MEDS: DEXT 5% IV PRN ×3 (05:25→23:26)
[2018-04-25] MEDS: WATER IV PRN ×3 (05:25→23:26)
[2018-04-25] MEDS: PHENYLEPHRINE IV PRN ×3 (05:25→23:26)
[2018-04-25 05:38] LABS: PHOSPHORUS 3.4 mg/dL (2.5-4.9)
[2018-04-25] MEDS: MIDODRINE HCL 5MG TABLET PO SCH ×3 (06:20→21:29)
[2018-04-25 06:49] LABS: NUCLEATED RED BLOOD CELLS 1 /100 WBC; PLATELET ESTIMATE SLIGHTLY DECREASED
[2018-04-25 08:13] LABS: BG BASE EXCESS -4.1 mmol/L (-2.0-2.0); BG CARBOXYHEMOGLOBIN 0.4 % (0.5-1.5); BG FRACTION INSPIRED OXYGEN 100; BG HCO3 ACT 19.8 mmol/L (22.0-26.0); BG METHEMOGLOBIN 0.3 % (0.0-1.5); BG OXYHEMOGLOBIN 98.3 % (94.0-97.0); BG PCO2 31.6 mmHg (35.0-45.0); BG PH 7.415 (7.350-7.450); BG PO2 192.4 mmHg (75.0-100.0); BG SAMPLE SITE RIGHT RADIAL; BG TOTAL HEMOGLOBIN 8.9 g/dL (12.0-18.0); BG VENT MODE MASK - NRB
[2018-04-25] MEDS: SUCRALFATE 1 G/10 ML UDC PO SCH ×4 (08:24→21:26)
[2018-04-25] MEDS: PANTOPRAZOLE SODIUM 40 MG/VIAL IV SCH ×2 (08:24→17:34)
[2018-04-25] MEDS: LACTULOSE 20G/30ML UDC PO SCH (08:24)
[2018-04-25] MEDS: LEVETIRACETAM 500MG TABLET PO SCH ×2 (08:24→21:27)
[2018-04-25] MEDS ORDERED: VASOPRESSIN 10 UNIT in SODIUM CHLORIDE 0.9% 99.5 ML IV PRN (10:15)
[2018-04-26] VITALS (72 sets, daily range): BP systolic 57–101; BP diastolic 35–58
[2018-04-26] MEDS: IPRATROPIUM/ALBUTEROL 0.5-3(2.5)MG/3ML NEB HHN SCH ×2 (02:43→08:35)
[2018-04-26] MEDS: MIDODRINE HCL 5MG TABLET PO SCH ×2 (05:01→15:58)
[2018-04-26 06:03] LABS: HEMATOCRIT. 27.5 % (42.0-52.0); HEMOGLOBIN. 9.2 g/dL (14.0-18.0); MEAN CORPUSCULAR HEMOGLOBIN 32.4 pg (28.0-32.0); MEAN CORPUSCULAR VOLUME 96.8 fL (80.0-94.0); MEAN PLATELET VOLUME 9.2 fl (7.4-10.4); PLATELET 103 x1000/uL (130-400); RED BLOOD CELL COUNT 2.84 mill/uL (4.7-6.1); RED CELL DISTRIBUTION WIDTH 19.9 % (11.6-14.6)
[2018-04-26 06:10] LABS: PHOSPHORUS 3.6 mg/dL (2.5-4.9)
[2018-04-26] MEDS: PANTOPRAZOLE SODIUM 40 MG/VIAL IV SCH ×2 (09:53→16:57)
[2018-04-26] MEDS: LACTULOSE 20G/30ML UDC PO SCH (09:54)
[2018-04-26] MEDS: SUCRALFATE 1 G/10 ML UDC PO SCH ×3 (09:54→16:58)
[2018-04-26] MEDS: LEVETIRACETAM 500MG TABLET PO SCH (09:54)
[2018-04-26 10:20] LABS: PLATELET ESTIMATE DECREASED
[2018-04-26] MEDS: NOREPINEPHRINE 64 MG in DEXT 5% WATER 436 ML IV PRN (16:47)
[2018-04-26] MEDS: DEXT 5% IV PRN (16:48)
[2018-04-26] MEDS: PHENYLEPHRINE IV PRN (16:48)
[2018-04-26] MEDS: WATER IV PRN (16:48)
== END 2018-04-26 18:15 | disposition hospice, home (50) | DRG 377 ==
LOC: ER 08:18 → CVICU 11:36 → EDBEDREQTM 11:38 → EDBEDREQ 11:38 → EDBEDREQSVC 11:38 → ENRESERV 12:55
PROVIDERS: ADMIT Hospitalist; ATTEND Hospitalist
PROC: B543ZZA Ultrasonography of Right Jugular Veins, Guidance (ICD-10-PCS; 2018-04-18)
PROC: 3E0G8GC Introduction of Other Therapeutic Substance into Upper GI, Via Natural or Artificial Opening Endoscopic (ICD-10-PCS; 2018-04-18)
PROC: 0W3P8ZZ Control Bleeding in Gastrointestinal Tract, Via Natural or Artificial Opening Endoscopic (ICD-10-PCS; 2018-04-18)
PROC: 0DB78ZX Excision of Stomach, Pylorus, Via Natural or Artificial Opening Endoscopic, Diagnostic (ICD-10-PCS; 2018-04-18)
PROC: 30233N1 Transfusion of Nonautologous Red Blood Cells into Peripheral Vein, Percutaneous Approach (ICD-10-PCS; 2018-04-18)
PROC: 30233K1 Transfusion of Nonautologous Frozen Plasma into Peripheral Vein, Percutaneous Approach (ICD-10-PCS; 2018-04-18)
PROC: 30233L1 Transfusion of Nonautologous Fresh Plasma into Peripheral Vein, Percutaneous Approach (ICD-10-PCS; 2018-04-18)
PROC: 5A1D70Z Performance of Urinary Filtration, Intermittent, Less than 6 Hours Per Day (ICD-10-PCS; 2018-04-18)
PROC: 05HM33Z Insertion of Infusion Device into Right Internal Jugular Vein, Percutaneous Approach (ICD-10-PCS; principal; 2018-04-18 18:00)
PROC: 5A1D70Z Performance of Urinary Filtration, Intermittent, Less than 6 Hours Per Day (ICD-10-PCS; 2018-04-19)
PROC: 5A1D70Z Performance of Urinary Filtration, Intermittent, Less than 6 Hours Per Day (ICD-10-PCS; 2018-04-20)
PROC: 0W993ZZ Drainage of Right Pleural Cavity, Percutaneous Approach (ICD-10-PCS; 2018-04-21)
PROC: 5A09457 Assistance with Respiratory Ventilation, 24-96 Consecutive Hours, Continuous Positive Airway Pressure (ICD-10-PCS; 2018-04-21)
PROC: 5A1D70Z Performance of Urinary Filtration, Intermittent, Less than 6 Hours Per Day (ICD-10-PCS; 2018-04-21)
PROC: 0W9930Z Drainage of Right Pleural Cavity with Drainage Device, Percutaneous Approach (ICD-10-PCS; 2018-04-22)
PROC: 5A1D70Z Performance of Urinary Filtration, Intermittent, Less than 6 Hours Per Day (ICD-10-PCS; 2018-04-22)
PROC: 5A1D70Z Performance of Urinary Filtration, Intermittent, Less than 6 Hours Per Day (ICD-10-PCS; 2018-04-24)
DX: K26.4 Chronic or unspecified duodenal ulcer with hemorrhage (principal); N18.6 End stage renal disease; R57.8 Other shock; J96.01 Acute respiratory failure with hypoxia; E41 Nutritional marasmus; D62 Acute posthemorrhagic anemia; I12.0 Hypertensive chronic kidney disease with stage 5 chronic kidney disease or end stage renal disease; N25.81 Secondary hyperparathyroidism of renal origin; R18.8 Other ascites; J93.9 Pneumothorax, unspecified; J81.1 Chronic pulmonary edema; D68.9 Coagulation defect, unspecified; J94.8 Other specified pleural conditions; J91.8 Pleural effusion in other conditions classified elsewhere; E72.20 Disorder of urea cycle metabolism, unspecified; I35.0 Nonrheumatic aortic (valve) stenosis; R00.0 Tachycardia, unspecified; K74.60 Unspecified cirrhosis of liver; E11.22 Type 2 diabetes mellitus with diabetic chronic kidney disease; E11.43 Type 2 diabetes mellitus with diabetic autonomic (poly)neuropathy; I95.1 Orthostatic hypotension; I45.10 Unspecified right bundle-branch block; E78.00 Pure hypercholesterolemia, unspecified; D69.6 Thrombocytopenia, unspecified; D53.9 Nutritional anemia, unspecified; E78.5 Hyperlipidemia, unspecified; M89.8X9 Other specified disorders of bone, unspecified site; I48.91 Unspecified atrial fibrillation; C61 Malignant neoplasm of prostate; Z66 Do not resuscitate; Z82.49 Family history of ischemic heart disease and other diseases of the circulatory system; Z83.3 Family history of diabetes mellitus; Z99.2 Dependence on renal dialysis; Z87.891 Personal history of nicotine dependence; Z86.73 Personal history of transient ischemic attack (TIA), and cerebral infarction without residual deficits; Z87.11 Personal history of peptic ulcer disease; Z68.24 Body mass index [BMI] 24.0-24.9, adult; Z79.82 Long term (current) use of aspirin
CPT/HCPCS: 32555; 36415; 36556; 36600; 71045; 71250; 74176; 76700; 78278; 80048; 80076; 82040; 82105; 82140; 82375; 82805; 83605; 83615; 83735; 84100; 84153; 84484; 85014; 85018; 86677; 86705; 86709; 86803; 86850; 86900; 86920; 86927; 87340; 88108; 88312; 93005; 93970; 94640; 94660; 96365; 96366; 99291; A4216; A6261; A9560; C9113; J2250; J2270; J2370; J3010; J3490; J7030; J7050; J7060; J7620; P9016; P9017; P9047; G0103